=== PATIENT | male | born 1990 | race Caucasian/White ===

== ENCOUNTER 2017-05-07 13:08 | Emergency (ER) | payer BC, OTHER ==
[~2017-05-07] VITALS: Ht 170.2 cm; Wt 72.6 kg
[2017-05-07 13:58] LABS: ABSOLUTE NEUTROPHILS 4.3 thou/uL (1.4-8.2); BASOPHILS 0.8 % (0.0-2.0); EOSINOPHILS 1.5 % (0.0-3.0); HEMATOCRIT 45.4 % (42.0-52.0); HEMOGLOBIN 15.3 gm/dL (14.0-18.0); LYMPHOCYTES 32.1 % (24.0-44.0); MANUAL DIFF NO; MCH 28.6 pg (26.0-34.0); MCHC 33.7 g/dL (28.0-37.0); MCV 84.8 fL (80.0-100.0); MONOCYTES 8.6 % (1.0-8.0); PLATELET COUNT 245 thou/uL (150-400); RBC 5.35 mil/uL (4.50-6.00); RDW 14.4 % (10.5-14.5); WBC 7.5 thou/uL (4.0-11.0)
[2017-05-07 14:01] LABS: CALCIUM 9.3 mg/dL (8.5-10.1); CREATININE 1.2 mg/dL (0.7-1.3); POTASSIUM 3.7 mmol/L (3.5-5.1)
[2017-05-07] MEDS ORDERED: SENNA8.6 MG PO (14:08)
[2017-05-07 14:23] VITALS: BP 118/73
== END 2017-05-07 14:31 | disposition home or self-care (01) ==
LOC: ER 13:08
PROVIDERS: Physician Assistant
DX: K62.5 Hemorrhage of anus and rectum (principal); K64.8 Other hemorrhoids; F17.220 Nicotine dependence, chewing tobacco, uncomplicated; F10.99 Alcohol use, unspecified with unspecified alcohol-induced disorder